=== PATIENT | male | born 1935 | race Native Hawaiian/Other Pacific Islander ===

== ENCOUNTER 2016-10-11 22:29 | Outpatient (CLI) | payer OTHER ==
[~2016-10-11 22:29] MED LIST: ACIDOPHILU PO; ACIDOPHILU3 PO; ACIDOPHILUS PRO1 TA1 PO; ALBUTEROL0.083 % IN; ASPI-93 PO; BIOTENE DRY MOUTH OR MT; BUDE1AER5 INH; CELEBREX200 MG PO; CETI10TA PO; CITALOPRAM10 MG PO; CLARITIN10 M1 PO; CLARITIN10 MG PO; CYCL10TA35 PO; DOCU100C10 PO; DONE5TAB PO; ELIQUIS5 MG PO; EMOLOIN22 TOP; ESCI10TA PO; FAMO20TA4 PO; FAMOTIDINE20 MG PO; FINA5TAB2 PO; FURO20TA67 PO; FURO40TA93 PO; GABA300C2 PO; GLIM2TAB PO; HYDR-2748 PO; HYDR10TA47 PO; INSU100P SC; INSUINJP SC; LAMISIL250 MG PO; LEVEMIR SC; LISI5TAB10 PO; LORTAB 10-325 M1 TAB PO; MECL25TA84 PO; MECLIZINE25 MG OR; MECLIZINE25 MG PO; MELATONIN10 M1 PO; MELATONIN10 MG PO; MELATONIN5 M2 PO; METF850T PO; METOPROLOL25 M1 PO; MUCINEX600 MG PO; NAMENDA XR28 MG PO; NAMENDA10 MG OR; NEXIUM40 M1 PO; NOVOLOG SC; NYST100010 EX; OMEP20CA PO; OMEPRAZOLE20 M2 PO; PANT40TA PO; PEPCID20 MG OR; PERCOCET1 TA3 PO; PRAVACHOL80 MG PO; PRILOSEC OTC20 MG OR; PRILOSEC20 MG OR; PROAIR HFA IN; SIMV40TA57; STOOL SOFTENER1 TA2 PO; STOOL SOFTNR100 M1 PO; TAMS0.4C PO; TIZA4TAB5 PO; VITAMIN D31000 UNIT PO; WARFARIN1 MG PO; WARFARIN2 MG PO; WARFARIN4 MG PO; WARFARIN5 MG PO; WARFARIN6 MG PO
== END 2016-10-11 22:35 | disposition short-term general hospital (02) ==
LOC: AMB 22:29
DX: R29.810 Facial weakness (principal); R53.1 Weakness; R11.2 Nausea with vomiting, unspecified; Z74.3 Need for continuous supervision
CPT/HCPCS: A0425; A0427

== ENCOUNTER 2016-10-11 22:35 | Observation (INO) | payer OTHER ==
[~2016-10-11] VITALS: Ht 172.7 cm; Wt 109.1 kg
[2016-10-11 22:58] VITALS: BP 160/70; TEMP 99.9
[2016-10-11 23:22] LABS: PLATELET COUNT 238 K/uL (142-355)
[2016-10-11 23:44] LABS: POTASSIUM 2.8 mmol/L (3.6-5.2)
[2016-10-12] VITALS (7 sets, daily range): BP systolic 123–165; BP diastolic 53–73; TEMP 97.3–99.4; Ht 172.7 cm; Wt 109.1 kg
[2016-10-12 06:46] LABS: PLATELET COUNT 187 K/uL (142-355)
[2016-10-12 06:55] LABS: POTASSIUM 4.2 mmol/L (3.6-5.2); SODIUM 135 mmol/L (136-145)
[2016-10-12 13:53] LABS: PARTIAL THROMBOPLASTIN TIME 29.3 SECONDS (24.5-33.6)
[2016-10-13] VITALS: BP 174/67; TEMP 97.4
[2016-10-13 04:00] VITALS: BP 181/76; TEMP 97.8
[2016-10-13 05:36] LABS: PLATELET COUNT 169 K/uL (142-355)
[2016-10-13 06:08] LABS: POTASSIUM 3.5 mmol/L (3.6-5.2); SODIUM 135 mmol/L (136-145)
[2016-10-13 08:00] VITALS: BP 182/76; TEMP 98
[2016-10-13 12:00] VITALS: BP 184/77; TEMP 97.6
[2016-10-13 16:00] VITALS: BP 179/86; TEMP 98
[2016-10-13 20:00] VITALS: BP 155/67; TEMP 98
[2016-10-14] VITALS: BP 145/65; TEMP 98
[2016-10-14 04:00] VITALS: BP 106/65; TEMP 97.8
[2016-10-14 05:00] LABS: PLATELET COUNT 172 K/uL (142-355)
[2016-10-14 05:02] LABS: SODIUM 135 mmol/L (136-145)
[2016-10-14 08:00] VITALS: BP 160/70; TEMP 98.1
[2016-10-14 12:00] VITALS: BP 143/71; TEMP 98.2
== END 2016-10-14 14:00 | disposition home or self-care (01) ==
LOC: ED 22:35 → MED/SURG 23:30
PROVIDERS: Emergency Medicine; Internal Medicine
DX: G45.8 Other transient cerebral ischemic attacks and related syndromes (principal); E11.65 Type 2 diabetes mellitus with hyperglycemia; Z79.4 Long term (current) use of insulin; J44.9 Chronic obstructive pulmonary disease, unspecified; M06.80 Other specified rheumatoid arthritis, unspecified site; N18.3 Chronic kidney disease, stage 3 (moderate); R13.12 Dysphagia, oropharyngeal phase; R48.8 Other symbolic dysfunctions
CPT/HCPCS: 36415; 80048; 80053; 80061; 81000; 82948; 83036; 83735; 85027; 85610; 85730; 93005; 94760; 96365; 96366; 96367; 96372; 99220; 99284; G0378; J3480